=== PATIENT | male | born 1955 | race Two or more races ===

== ENCOUNTER 2023-08-20 10:38 | Outpatient (OUT) | payer OTHER, SELFPAY ==
--- NOTE | 2023-08-20 10:47 | ECG_ITS ---
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
--- NOTE | 2023-08-20 11:46 | P.GSHP_ITS ---
History of Present Illness History of Present Illness Chief complaint: BPH W/ OBSTRUCTION Narrative: Patient presents for preadmission testing. The patient reports urinary frequency, urgency, weak stream, incomplete bladder emptying, and nocturia. Patient denies dysuria, hematuria, abdominal pain, nausea, vomiting, fever, or any other complaints. Review of Systems ROS Narrative REVIEW OF SYSTEMS: Negative except as stated in HPI, ten or more systems reviewed. Constitutional: No fever , chills, weakness ENT: No sore throat or epistaxis Cardiovascular: No edema, chest pain, palpitations, or activity intolerance Respiratory: No shortness of breath, cough, or wheezing Musculoskeletal: No joint pain or swelling Gastrointestinal: No abdominal pain, constipation, diarrhea, or vomiting Genitourinary: No dysuria or hematuria Neurological: No numbness, tingling, weakness, or headache Psychiatric: No mood changes PFSH PFSH Medical History (Updated 08/20/23 @ 11:48 by Leena Infante NP) Back pain ?M54.9 - Dorsalgia, unspecified (ICD-10) Benign prostatic hyperplasia with urinary obstruction and other lower urinary tract symptoms ?N40.1 - Benign prostatic hyperplasia with lower urinary tract symptoms (ICD- 10) ?N13.8 - Other obstructive and reflux uropathy (ICD-10) BPH (benign prostatic hyperplasia) ?N40.0 - Benign prostatic hyperplasia without lower urinary tract symptoms (ICD-10) Heartburn ?R12 - Heartburn (ICD-10) Hypertension ?I10 - Essential (primary) hypertension (ICD-10) Neck pain ?M54.2 - Cervicalgia (ICD-10) Palpitations ?R00.2 - Palpitations (ICD-10) Sleep apnea ?G47.30 - Sleep apnea, unspecified (ICD-10) Surgical History (Updated 08/20/23 @ 11:15 by Leena Infante NP) H/O cervical spinal arthrodesis ?Z98.1 - Arthrodesis status (ICD-10) History of colonoscopy ?Z98.890 - Other specified postprocedural states (ICD-10) History of spinal surgery ?Z98.890 - Other specified postprocedural states (ICD-10) Family History (Updated 08/20/23 @ 11:15 by Leena Infante NP) Other Family history of COPD (chronic obstructive pulmonary disease) Family history of diabetes mellitus Family history of pancreatic cancer Family history of prostate cancer Social History (Updated 08/20/23 @ 11:11 by Leena Infante NP) Within the past year, how often did you have a drink containing alcohol: 2-3 times a week Smoking status: Former smoker Non-prescribed substance use: denies use Highest level of school completed/degree received: high school graduate Meds Home Medications and Allergies Home Medications Medication Instructions Recorded Confirmed Type acetaminophen 325 mg tablet 325 mg PO Q6H PRN pain 08/20/23 08/20/23 History (Tylenol) gabapentin 100 mg capsule 100 mg PO Q8H 08/20/23 08/20/23 History lisinopril 20 1 tab PO DAILY 08/20/23 08/20/23 History mg-hydrochlorothiazide 12.5 mg tablet sildenafil 50 mg tablet 50 mg PO DAILY PRN sexual activity 08/20/23 08/20/23 History tamsulosin 0.4 mg capsule (Flomax) 0.4 mg PO DAILY 08/20/23 08/20/23 History Allergies Allergy/AdvReac Type Severity Reaction Status Date / Time No Known Drug Allergies Allergy Verified 08/20/23 11:08 Exam Narrative Exam Narrative: Constitutional: Awake, alert, comfortable, well-appearing, nontoxic, interactive, vital signs as charted Head: Normocephalic, atraumatic Neck: Supple, normal appearance, normal range of motion, no meningeal signs, no lymphadenopathy Respiratory: No respiratory distress, breath sounds clear Cardiovascular: Regular rate and rhythm, strong and regular heart tones Abdomen: Nontender, normal bowel sounds, soft, no CVA tenderness Musculoskeletal: Normal gait, no swelling or edema Skin: No rashes or induration, no lesions, only visible skin inspected Neuro: No neurological deficits, normal sensation Psychiatric: Oriented ?3, normal affect Assessment and Plan Assessment and Plan (1) BPH (benign prostatic hyperplasia): (2) Benign prostatic hyperplasia with urinary obstruction and other lower urinary tract symptoms: Plan Cystoscopy, TUIP, possible TURP Scheduled with Dr. Gee 08/30/2023.
[2023-08-20 12:05] LABS: Basophils Percent Auto 0.4 % (0.2-2.0); Eosinophils Absolute Auto 0.1 10^3/uL (0.0-0.7); Eosinophils Percent Auto 1.4 % (0.9-7.0); Hemoglobin 13.7 g/dL (14.0-18.0); Immature Granulocytes Abs Auto 0.02 10^3/uL (0.00-0.03); Immature Granulocytes Pct Auto 0.3 % (0.0-0.5); Lymphocytes Absolute Auto 1.1 10^3/uL (1.2-3.8); Lymphocytes Percent Auto 15.1 % (20.5-60.0); Mean Corpuscular HGB Conc 35.1 g/dL (29.9-35.2); Mean Corpuscular Volume 91.1 fL (80.0-94.0); Mean Platelet Volume 9.6 fL (9.5-13.5); Monocytes Absolute Auto 0.7 10^3/uL (0.3-0.8); Monocytes Percent Auto 9.8 % (1.7-12.0); Neutrophils Absolute Auto 5.4 10^3/uL (1.4-6.5); Platelet Count 247 10^3/uL (150-450); Red Blood Count 4.28 10^6/uL (4.70-6.10); Red Cell Distribution Width 13.1 % (11.0-15.0); White Blood Count 7.3 10^3/uL (4.0-11.0)
[2023-08-20 15:21] LABS: Anion Gap 14.9; BUN Creatinine Ratio 29.6; Calcium 9.1 mg/dL (8.5-10.1); Carbon Dioxide 23.1 mmol/L (21.0-32.0); Chloride 105 mmol/L (98-107); Estimated GFR (African America >60 (>=60); Estimated GFR (Non-African Ame >60 (>=60); Glucose 160 mg/dL (74-106); Sodium 139 mmol/L (136-145)
== END 2023-08-20 10:39 | disposition home or self-care (01) ==
LOC: PST 10:43
PROVIDERS: Visit Provider Urology
DX: Z01.812 Encounter for preprocedural laboratory examination (principal); Z01.810 Encounter for preprocedural cardiovascular examination; N40.1 Benign prostatic hyperplasia with lower urinary tract symptoms; N13.8 Other obstructive and reflux uropathy; Z87.891 Personal history of nicotine dependence; I10 Essential (primary) hypertension; Z79.899 Other long term (current) drug therapy; M54.9 Dorsalgia, unspecified; R12 Heartburn; M54.2 Cervicalgia; R00.2 Palpitations; G47.30 Sleep apnea, unspecified
CPT/HCPCS: 36415; 80048; 85025; 85610; 85730; 93005; G0463

== ENCOUNTER 2023-08-30 09:38 | Day surgery (SDC) | payer OTHER, SELFPAY ==
[2023-08-20 11:43] VITALS: BP 146/90; PULSE 66; RESP 18; TEMP 36.2; O2SAT 97; BMI 32.6
[2023-08-30] VITALS (9 sets, daily range): BP systolic 102–146; BP diastolic 54–84; PULSE 78–92; RESP 12–20; TEMP 35.9–37.2; O2SAT 93–97; BMI 33.8
[2023-08-30 10:07] LABS: Partial Thromboplastin Time 27.6 sec (22.3-36.2)
[2023-08-30 10:18] LABS: Prothrombin Time 9.7 sec (9.0-11.6)
[2023-08-30] MEDS: LACTATED RINGER'S SOLUTION 1,000 ML 50 ML IV (10:25)
[2023-08-30 10:35] LABS: INR <0.93
[2023-08-30] MEDS: LEVOFLOXACIN IN DEXTROSE 5 % 500 MG/100 ML PIGGYBACK 100 MG IV (11:12)
--- NOTE | 2023-08-30 12:50 | PM.URSON ---
Urology Surgery Operative Note Operative Note Procedure Date: 08/30/23 Time Out Performed: yes Pre-op Diagnosis: benign prostatic hypertrophy with L UTS refractory to medications Post-op Diagnosis: same as pre-op Procedures performed: #1. Urethral dilation with Rand sounds to 28 [place]. #2. Cystoscopy. #3. Transurethral resection of the prostate Anesthesia: General-LMA Primary Surgeon: Vargas Gee Complications: none Estimated blood loss (mL): 10 Findings: high median bar and obstructing lateral lobes Specimens: prostate chips. Drains: 22 [place] three-way coud? Garcia in the bladder to CBI Indications for Procedures: this gentleman has significant bladder all at obstructive symptoms despite medications. Endoscopically he is obstructed in a trilobar fashion. Urodynamically he has low flow and elevated pressures. He is strongly desirous for a transurethral resection of the prostate. He has signed an informed consent after all risks were explained. Some of these risks include bleeding, infection, anesthesia, retrograde ejaculation, urinary incontinence both temporary and permanent and erectile dysfunction to name a few Detailed description of Procedure: The patient was brought to the operating room and placed on the operating room table in the supine position. SCDs were placed on the lower extremities and turned on and functioning during the entire case. Timeout was done by all parties in the room. We all agreed upon the patient's identification and the planned procedures for this patient. Genn. anesthesia was then administered. The patient was then repositioned into the modified dorsal lithotomy position. All pressure points were satisfactorily padded. Genitalia were sterilely prepped and draped in usual fashion.after I could not pass the resectoscope I then used the Rand sounds and dilated him from 20 [place] up to 28 [place].I then started by passing a 26 [place] Olympus resectoscope with the standard bipolar loop electrode per urethra and into the bladder. The median bar was very high. The orifices were identified. I then started on the median bar and uniformly resected this down to the bladder neck level. I then resected posteriorly from the bladder neck to the veru level. The right and lateral lobes were then resected similarly. The anterior tissue was also resected similarly. I brought the scope back to the apex and open this up carefully. The resection bed was coagulated. The [place] evacuator was used to get all the tissue chips out of the bladder and these were sent for permanent sections. With the scope at the apex the prostatic urethra and bladder neck were now wide open. There was no bleeding. There were no chips remaining in the bladder. The scope was then removed. I then placed a 22 [place] three-way coud? Garcia catheter into the bladder. It was manually irrigated. 30 mL of fluid was placed in the balloon. CBI was started after the catheter was taped to traction. It irrigated clear. He was then transferred to a [facility] bed and wheeled to PACU in stable condition.
[2023-08-30] MEDS: SOLIFENACIN SUCCINATE 10 MG TABLET PO (14:12)
[2023-08-30] MEDS: GABAPENTIN 100 MG CAPSULE PO ×2 (14:12→21:19)
[2023-08-30] MEDS: CEFAZOLIN SODIUM/DEXTROSE,ISO 1 GM/50 ML IV.SOLN IV ×2 (14:13→19:35)
[2023-08-30] MEDS: 0.9 % SODIUM CHLORIDE 1,000 ML 80 ML IV (14:16)
[2023-08-30] MEDS: SODIUM CHLORIDE IRRIG SOLUTION 3,000 ML 3000 ML IRR ×2 (14:58→14:59)
[2023-08-31] VITALS: BP 93/56; PULSE 78; RESP 18; TEMP 37.1; O2SAT 92
[2023-08-31] MEDS: 0.9 % SODIUM CHLORIDE 1,000 ML 80 ML IV (03:30)
[2023-08-31 04:00] VITALS: BP 109/70; PULSE 70; RESP 20; TEMP 36.6; O2SAT 97
[2023-08-31 04:13] VITALS: O2SAT 95
[2023-08-31] MEDS: GABAPENTIN 100 MG CAPSULE PO (06:23)
[2023-08-31] MEDS: TAMSULOSIN HCL 0.4 MG CAPSULE PO (08:29)
[2023-08-31] MEDS: SOLIFENACIN SUCCINATE 10 MG TABLET PO (08:29)
[2023-08-31 09:44] VITALS: O2SAT 94
== END 2023-08-31 10:09 | disposition home or self-care (01) ==
LOC: SURGOUT 12:38 → MS 13:26
PROVIDERS: PCP Family Medicine; Visit Provider Urology
PROC: (CPT 52601; principal; 2023-08-30 11:00)
DX: N40.1 Benign prostatic hyperplasia with lower urinary tract symptoms (principal); M19.90 Unspecified osteoarthritis, unspecified site; Z87.891 Personal history of nicotine dependence; I10 Essential (primary) hypertension; N52.9 Male erectile dysfunction, unspecified; Z98.1 Arthrodesis status; Z79.899 Other long term (current) drug therapy
CPT/HCPCS: 52601; 36415; 85610; 85730; 88305; 94761; J2704